=== PATIENT | female | born 1980 | race Caucasian/White ===

== ENCOUNTER 2019-08-23 17:01 | Emergency (ER) | payer MEDICAID ==
[~2019-08-23] VITALS: Ht 157.5 cm; Wt 88.4 kg
--- NOTE | 2019-08-23 17:53 | NUR ---
THIS IS A 39 YO F W/ C/O LT LWR LEG SWELLING AND PAIN. PT IS 8 WEEKS [id number]. PT REPORTS TOXEMIA W/ 5TH . PT RESP EVEN AND UNLABORED, NADN. PT RESTING ON [facility] W/ CALL LIGHT IN REACH, CONNECTED TO MONITORING, AWAITING US.
[2019-08-23 17:59] VITALS: BP 136/77
--- NOTE | 2019-08-23 18:37 | NUR ---
PT IN US.
--- NOTE | 2019-08-23 19:01 | NUR ---
PT LEFT PRIOR TO RECEIVING DC INSTRUCTIONS.
== END 2019-08-23 18:06 ==
LOC: ED 18:05
DX: O26.891 Other specified pregnancy related conditions, first trimester (principal); M79.662 Pain in left lower leg; F17.200 Nicotine dependence, unspecified, uncomplicated; Z3A.08 8 weeks gestation of pregnancy
CPT/HCPCS: 36415; 84702; 99284